=== PATIENT | female | born 1955 | race Asian ===

== ENCOUNTER → 2020-09-18 | Outpatient (CLI) | payer OTHER | END | disposition home or self-care (01) | LOC: WOUND 13:14 | PROVIDERS: ATTEND Nurse Practitioner Family | DX: R21 Rash and other nonspecific skin eruption (principal); T46.5X5A Adverse effect of other antihypertensive drugs, initial encounter; L27.1 Localized skin eruption due to drugs and medicaments taken internally; L08.89 Other specified local infections of the skin and subcutaneous tissue; I10 Essential (primary) hypertension; H26.9 Unspecified cataract; Z96.659 Presence of unspecified artificial knee joint; Y92.89 Other specified places as the place of occurrence of the external cause; Y84.2 Radiological procedure and radiotherapy as the cause of abnormal reaction of the patient, or of later complication, without mention of misadventure at the time of the procedure | CPT/HCPCS: 99214 ==

== ENCOUNTER → 2020-09-25 | Outpatient (CLI) | payer OTHER | END | disposition home or self-care (01) | LOC: WOUND 12:23 | PROVIDERS: ATTEND Nurse Practitioner Family | DX: R21 Rash and other nonspecific skin eruption (principal); T46.5X5D Adverse effect of other antihypertensive drugs, subsequent encounter; L27.1 Localized skin eruption due to drugs and medicaments taken internally; L08.89 Other specified local infections of the skin and subcutaneous tissue; I10 Essential (primary) hypertension; H26.9 Unspecified cataract; Z96.659 Presence of unspecified artificial knee joint; Y84.2 Radiological procedure and radiotherapy as the cause of abnormal reaction of the patient, or of later complication, without mention of misadventure at the time of the procedure | CPT/HCPCS: 99213 ==

== ENCOUNTER → 2020-11-19 | Outpatient (CLI) | payer OTHER | END | disposition home or self-care (01) | LOC: WOUND 09:25 | PROVIDERS: ATTEND Internal Medicine | DX: L97.522 Non-pressure chronic ulcer of other part of left foot with fat layer exposed (principal); L97.511 Non-pressure chronic ulcer of other part of right foot limited to breakdown of skin; R21 Rash and other nonspecific skin eruption; L03.116 Cellulitis of left lower limb; L03.115 Cellulitis of right lower limb; L03.032 Cellulitis of left toe; I10 Essential (primary) hypertension; Z98.49 Cataract extraction status, unspecified eye; Z96.659 Presence of unspecified artificial knee joint; Z79.899 Other long term (current) drug therapy | CPT/HCPCS: 97597; 97598; 99215 ==

== ENCOUNTER → 2020-11-26 | Outpatient (CLI) | payer OTHER | END | disposition home or self-care (01) | LOC: WOUND 08:34 | PROVIDERS: ATTEND Internal Medicine | DX: L97.522 Non-pressure chronic ulcer of other part of left foot with fat layer exposed (principal); L97.512 Non-pressure chronic ulcer of other part of right foot with fat layer exposed; R21 Rash and other nonspecific skin eruption; L03.116 Cellulitis of left lower limb; L03.115 Cellulitis of right lower limb; L03.032 Cellulitis of left toe; I10 Essential (primary) hypertension; Z98.49 Cataract extraction status, unspecified eye; Z96.659 Presence of unspecified artificial knee joint; Z79.899 Other long term (current) drug therapy | CPT/HCPCS: 97597; 97598 ==

== ENCOUNTER 2020-12-03 08:20 | Outpatient (CLI) | payer OTHER | END 2020-12-03 23:59 | disposition home or self-care (01) | LOC: WOUND 08:20 | PROVIDERS: ATTEND Internal Medicine | DX: L97.522 Non-pressure chronic ulcer of other part of left foot with fat layer exposed (principal); L97.512 Non-pressure chronic ulcer of other part of right foot with fat layer exposed; R21 Rash and other nonspecific skin eruption; I10 Essential (primary) hypertension; Z98.49 Cataract extraction status, unspecified eye; Z96.659 Presence of unspecified artificial knee joint; Z79.899 Other long term (current) drug therapy | CPT/HCPCS: 99212 ==